=== PATIENT | female | born 1975 | race Caucasian/White ===

== ENCOUNTER 2017-11-12 08:27 | Day surgery (SDC) | payer BC ==
[~2017-11-12] VITALS: Ht 170.2 cm; Wt 113.5 kg
[~2017-11-12 08:27] MED LIST: ASPIR-LOW81 MG PO
[2017-11-12] MEDS ORDERED: ATORVASTATIN CA40 MG PO (08:49)
[2017-11-12] MEDS ORDERED: LISINOPRIL10 MG PO (08:50)
[2017-11-12] MEDS ORDERED: NITRO-TIME6.5 MG PO (08:51)
[2017-11-12 16:30] VITALS: BP 109/54
[2017-11-12 19:10] VITALS: BP 99/52
[2017-11-13 00:15] VITALS: BP 109/64
[2017-11-13 03:31] VITALS: BP 104/60
[2017-11-13 05:28] LABS: BASOPHIL (%) 0.2 % (0-1); EOSINOPHIL (%) 1.5 % (0-5); EOSINOPHIL COUNT 0.2 K/uL (0-0.3); HEMATOCRIT 33.4 % (36.0-46.0); IMMATURE GRANULOCYTE (%) 0.4 % (0.0-0.7); LYMPHOCYTE (%) 31.5 % (15-42); LYMPHOCYTE COUNT 3.9 K/uL (1.0-2.8); MCH 31.5 PG (29.0-34.0); MCHC 33.5 G/DL (30.0-36.0); MCV 94.1 FL (83-99); MONOCYTE (%) 4.2 % (3-12); MONOCYTE COUNT 0.5 K/uL (0-0.8); NEUTROPHIL (%) 62.2 % (45-76); NEUTROPHIL COUNT 7.6 K/uL (1.8-6.4); PLATELET COUNT 229 K/uL (156-360); RBC DIS.WIDTH-CV 13.6 % (11.8-14.6); RBC DIS.WIDTH-SD 46.5 % (39-53); WHITE BLOOD COUNT 12.3 K/uL (4.1-10.2)
[2017-11-13 05:30] LABS: HEMOGLOBIN 11.2 G/DL (11.9-15.5); RED BLOOD COUNT 3.55 M/uL (3.80-5.20)
[2017-11-13 05:44] LABS: CHLORIDE 105 MEQ/L (99-109); CREATININE 0.5 MG/DL (0.6-1.3); GFR ESTIMATE (CALCULATED) > 59 mL/min/; GLUCOSE 120 mg/dL (70-99); POTASSIUM 3.9 MEQ/L (3.7-5.4); SODIUM 136 MEQ/L (136-147); UREA NITROGEN (BUN) 7 mg/dL (9-23)
[2017-11-13 09:00] VITALS: BP 131/57
[2017-11-13] MEDS ORDERED: NICOTINE PATCH1 EAC1 TD (12:44)
[2017-11-13] MEDS ORDERED: CLOPIDOGREL75 MG PO (12:44)
== END 2017-11-13 13:51 | disposition home or self-care (01) ==
LOC: CATH 08:27 → 4EAST 12:00 → ENRESERV 13:30 → ENPENDDIS 11-13 → 4EAST 11-13 13:51
PROVIDERS: Internal Medicine Cardiovascular Disease
DX: I25.119 Atherosclerotic heart disease of native coronary artery with unspecified angina pectoris (principal); E78.5 Hyperlipidemia, unspecified; I10 Essential (primary) hypertension; R73.02 Impaired glucose tolerance (oral); F17.200 Nicotine dependence, unspecified, uncomplicated; E66.9 Obesity, unspecified; Z68.39 Body mass index [BMI] 39.0-39.9, adult; Z82.49 Family history of ischemic heart disease and other diseases of the circulatory system
CPT/HCPCS: 80048; 85025; 85347; 93005; C1725; C1760; C1769; C1874; C1887; C1894; G0378; J0153; J0583; J0690; J1644; J2250; J3010; J7030; J7050

== ENCOUNTER 2017-11-20 13:55 | Inpatient (IN) | payer BC ==
[2017-11-20] VITALS (7 sets, daily range): BP systolic 104–117; BP diastolic 43–59
[~2017-11-20] VITALS: Ht 170.2 cm; Wt 102.0 kg
[~2017-11-20 13:55] MED LIST changes: +ATORVASTATIN CA40 MG PO; +CLOPIDOGREL75 MG PO; +LISINOPRIL10 MG PO; +NICOTINE PATCH1 EAC1 TD; +NITRO-TIME6.5 MG PO
[2017-11-20 14:47] LABS: INTER. NORMALIZED RATIO 1.1
[2017-11-20 14:47] LABS: BASOPHIL (%) 0.2 % (0-1); EOSINOPHIL COUNT 0.3 K/uL (0-0.3); HEMATOCRIT 15.7 % (36.0-46.0); HEMOGLOBIN 5.2 G/DL (11.9-15.5); IMMATURE GRANULOCYTE (%) 1.4 % (0.0-0.7); LYMPHOCYTE (%) 20.4 % (15-42); LYMPHOCYTE COUNT 2.5 K/uL (1.0-2.8); MCH 32.7 PG (29.0-34.0); MCHC 33.1 G/DL (30.0-36.0); MCV 98.7 FL (83-99); MONOCYTE (%) 4.5 % (3-12); MONOCYTE COUNT 0.6 K/uL (0-0.8); NEUTROPHIL (%) 71.5 % (45-76); NEUTROPHIL COUNT 8.9 K/uL (1.8-6.4); NRBC (%) 0.2 /100 WBC (0-0); PLATELET COUNT 377 K/uL (156-360); RBC DIS.WIDTH-CV 16.7 % (11.8-14.6); RBC DIS.WIDTH-SD 52.5 % (39-53); RED BLOOD COUNT 1.59 M/uL (3.80-5.20); WHITE BLOOD COUNT 12.5 K/uL (4.1-10.2)
[2017-11-20 14:49] LABS: CHLORIDE 103 mEq/L (99-109); POTASSIUM 3.9 mEq/L (3.7-5.4); SODIUM 138 mEq/L (136-147)
[2017-11-20 14:50] LABS: PTT 26.3 SEC (25-37)
[2017-11-20 14:50] LABS: MAGNESIUM 2.1 mg/dL (1.3-2.7)
[2017-11-20 14:51] LABS: GLUCOSE 109 mg/dL (70-99)
[2017-11-20 14:55] LABS: CREATININE 0.7 mg/dL (0.6-1.3); GFR ESTIMATE (CALCULATED) > 59 mL/min/; UREA NITROGEN (BUN) 10 mg/dL (9-23)
[2017-11-20 15:00] LABS: TROP-I INTERPRETATION NEGATIVE; TROPONIN-I 0.06 ng/mL (0.0-0.30)
[2017-11-20] MEDS ORDERED: TYLENOL EXTRA500 MG PO (16:32)
[2017-11-20] MEDS ORDERED: CORTIZONE-1028 GM TP (16:32)
[2017-11-20] MEDS ORDERED: PLAVIX75 MG PO (16:33)
[2017-11-21] VITALS (21 sets, daily range): BP systolic 97–147; BP diastolic 51–65
[2017-11-21 02:50] LABS: HEMATOCRIT 19.8 % (36.0-46.0); HEMOGLOBIN 6.6 G/DL (11.9-15.5); MCH 30.7 PG (29.0-34.0); MCHC 33.3 G/DL (30.0-36.0); MCV 92.1 FL (83-99); NRBC (%) 0.3 /100 WBC (0-0); PLATELET COUNT 307 K/uL (156-360); RBC DIS.WIDTH-CV 17.9 % (11.8-14.6); RBC DIS.WIDTH-SD 55.6 % (39-53); RED BLOOD COUNT 2.15 M/uL (3.80-5.20); WHITE BLOOD COUNT 11.2 K/uL (4.1-10.2)
[2017-11-21 07:20] LABS: HEMATOCRIT 22.1 % (36.0-46.0); HEMOGLOBIN 7.3 G/DL (11.9-15.5); MCH 29.8 PG (29.0-34.0); MCV 90.2 FL (83-99); NRBC (%) 0.3 /100 WBC (0-0); PLATELET COUNT 285 K/uL (156-360); RBC DIS.WIDTH-CV 18.5 % (11.8-14.6); RED BLOOD COUNT 2.45 M/uL (3.80-5.20); WHITE BLOOD COUNT 9.5 K/uL (4.1-10.2)
[2017-11-21 07:44] LABS: ALBUMIN 3.2 G/DL (3.2-4.8); ALKALINE PHOSPHATASE 45 IU/L (3-129); ALT (GPT) 9 IU/L (3-49); AST (GOT) 7 IU/L (2-34); CHLORIDE 105 MEQ/L (99-109); CREATININE 0.6 MG/DL (0.6-1.3); GFR ESTIMATE (CALCULATED) > 59 mL/min/; GLUCOSE 113 mg/dL (70-99); POTASSIUM 4.3 MEQ/L (3.7-5.4); SODIUM 137 MEQ/L (136-147); TOTAL BILIRUBIN 0.5 MG/DL (0.0-1.0); UREA NITROGEN (BUN) 7 mg/dL (9-23)
[2017-11-21 15:45] LABS: PROLACTIN 10.5 NG/ML
[2017-11-21 15:52] LABS: FOLLICLE STIM.HORM. 2.8 MIU/ML
[2017-11-21 15:53] LABS: LUTEINIZING HORMONE 1.3 MIU/ML
[2017-11-21 16:38] LABS: QUANTITATIVE HCG < 4.0 MIU/ML
[2017-11-21 21:07] LABS: HEMATOCRIT 28.2 % (36.0-46.0); HEMOGLOBIN 9.7 G/DL (11.9-15.5); MCH 29.8 PG (29.0-34.0); MCHC 34.4 G/DL (30.0-36.0); MCV 86.8 FL (83-99); NRBC (%) 0.3 /100 WBC (0-0); PLATELET COUNT 300 K/uL (156-360); RBC DIS.WIDTH-CV 18.2 % (11.8-14.6); RBC DIS.WIDTH-SD 53.3 % (39-53); RED BLOOD COUNT 3.25 M/uL (3.80-5.20)
[2017-11-22 00:03] VITALS: BP 105/52
[2017-11-22 04:10] VITALS: BP 106/57
[2017-11-22 06:22] LABS: BASOPHIL (%) 0.3 % (0-1); EOSINOPHIL (%) 3.5 % (0-5); EOSINOPHIL COUNT 0.4 K/uL (0-0.3); HEMATOCRIT 28.6 % (36.0-46.0); HEMOGLOBIN 9.3 G/DL (11.9-15.5); IMMATURE GRANULOCYTE (%) 0.9 % (0.0-0.7); LYMPHOCYTE (%) 22.2 % (15-42); LYMPHOCYTE COUNT 2.2 K/uL (1.0-2.8); MCH 28.8 PG (29.0-34.0); MCHC 32.5 G/DL (30.0-36.0); MCV 88.5 FL (83-99); MONOCYTE (%) 4.5 % (3-12); MONOCYTE COUNT 0.5 K/uL (0-0.8); NEUTROPHIL (%) 68.6 % (45-76); NEUTROPHIL COUNT 6.8 K/uL (1.8-6.4); PLATELET COUNT 307 K/uL (156-360); RBC DIS.WIDTH-CV 18.6 % (11.8-14.6); RBC DIS.WIDTH-SD 56.1 % (39-53); RED BLOOD COUNT 3.23 M/uL (3.80-5.20); WHITE BLOOD COUNT 9.9 K/uL (4.1-10.2)
[2017-11-22 07:55] VITALS: BP 127/60
[2017-11-22 09:01] LABS: ALBUMIN 3.4 G/DL (3.2-4.8); ALKALINE PHOSPHATASE 42 IU/L (3-129); ALT (GPT) 10 IU/L (3-49); AST (GOT) 8 IU/L (2-34); CHLORIDE 106 MEQ/L (99-109); CREATININE 0.7 MG/DL (0.6-1.3); GFR ESTIMATE (CALCULATED) > 59 mL/min/; GLUCOSE 112 mg/dL (70-99); POTASSIUM 4.2 MEQ/L (3.7-5.4); SODIUM 139 MEQ/L (136-147); TOTAL BILIRUBIN 0.4 MG/DL (0.0-1.0); TOTAL PROTEIN 5.3 G/DL (6.4-8.3); UREA NITROGEN (BUN) 8 mg/dL (9-23)
[2017-11-22] MEDS ORDERED: TIROSINT75 MCG PO (13:51)
[2017-11-22] MEDS ORDERED: FERREX 150 FOR1 EACH PO (13:52)
== END 2017-11-22 14:37 | disposition home or self-care (01) | DRG 761 ==
LOC: EME 13:55 → 2EAST 16:40 → EDOF 16:40 → ENRESERV 16:45 → 2EAST 19:59
PROVIDERS: Emergency Medicine; Internal Medicine; Obstetrics & Gynecology
PROC: 30233N1 Transfusion of Nonautologous Red Blood Cells into Peripheral Vein, Percutaneous Approach (ICD-10-PCS; principal; 2017-11-20)
DX: N92.1 Excessive and frequent menstruation with irregular cycle (principal); N93.8 Other specified abnormal uterine and vaginal bleeding; D50.0 Iron deficiency anemia secondary to blood loss (chronic); I25.10 Atherosclerotic heart disease of native coronary artery without angina pectoris; I11.9 Hypertensive heart disease without heart failure; E78.5 Hyperlipidemia, unspecified; E03.9 Hypothyroidism, unspecified; R73.02 Impaired glucose tolerance (oral); R00.1 Bradycardia, unspecified; Z68.35 Body mass index [BMI] 35.0-35.9, adult; F17.200 Nicotine dependence, unspecified, uncomplicated; Z95.5 Presence of coronary angioplasty implant and graft; Z79.02 Long term (current) use of antithrombotics/antiplatelets; Z79.82 Long term (current) use of aspirin; Z82.49 Family history of ischemic heart disease and other diseases of the circulatory system; Z83.3 Family history of diabetes mellitus
CPT/HCPCS: 36415; 71045; 76856; 80048; 80053; 82670; 83001; 83002; 83735; 84146; 84439; 84443; 84484; 84702; 85025; 85025 91; 85027; 85610; 85730; 86850; 86900; 86901; 86920; 93005; 93306; 99281; 99285; P9016